=== PATIENT | male | born 1965 | race Caucasian/White ===

== ENCOUNTER 2017-05-16 08:47 | Emergency (ER) | payer BC ==
[2017-05-16] MEDS ORDERED: ASPIRIN 81 MG TAB.CHEW ONE (09:32)
[2017-05-16] MEDS ORDERED: METOPROLOL TARTRATE 25 MG TABLET ONE (09:32)
--- NOTE | 2017-05-16 09:32 | ERNOTE ---
Medical Problem HPI - Narrative Date of Service: 05/16/17 - General Chief Complaint: General Assessment Time Seen by Provider: 05/16/17 09:32 Source: patient - Immun/Allergies/Home Medications Immunizations: IMMUNIZATION HX Immunizations Up to Date Yes History of Influenza Vaccine No Hx Pneumococcal Vaccination No Allergies/Adverse Reactions: Allergies No Known Allergies Allergy (Verified 05/16/17 09:01) Home Medications: HOME MEDICATIONS Atorvastatin Calcium [Lipitor] 10 mg PO HS 05/30/14 [Last Taken Unknown] Lansoprazole [Prevacid] 30 mg PO DAILY 05/30/14 [Last Taken Unknown] Valsartan [Diovan] 80 mg PO DAILY #30 tablet 05/16/17 [Last Taken Unknown] - History of Present History Narrative: left shoulder pain Date (Duration): 05/14/17 Time (Timing): 08:00 Timing: getting worse Modifying Factors - (Improves): Present: cold therapy, medication - topical antihistamine with a menthol combination. Review of Systems - Narrative Narrative: Patient currently denies any active chest pain. Reports that he has pain in the posterior left shoulder along the rhomboids. He denies any acute injury he reports that this is more of an achy he usually doesn't require to take any significant pain medication. Patient reports that he had a wellness screening and his blood pressure was identified as elevated in the range of essential hypertension. After the health screening he has to front to take his blood pressure continued to be elevated and he is here for evaluation. Patient's current health's factors include hyperlipidemia male gender and elevated blood pressure now identified and confirmed with several elevated readings. - Review of Systems Constitutional: Present: no symptoms reported EYE: Present: no symptoms reported ENT: Present: no symptoms reported Respiratory: Present: no symptoms reported Cardiology: Present: no symptoms reported Gastrointestinal/Abdominal: Present: no symptoms reported Genitourinary: Present: no symptoms reported Musculoskeletal: Present: See HPI, muscle pain - posterior left shoulder, muscle stiffness. Absent: neck pain, joint pain, joint swelling Skin: Present: no symptoms reported Neurological: Present: no symptoms reported Endocrine: Present: no symptoms reported Hematologic/Lymphatic: Present: no symptoms reported Psych: Present: no symptoms reported All Other Systems: All systems neg except as marked - Narrative Narrative: Pertinent past medical history, past social history, past surgical history, medications, social history, and family history were all reviewed. - Patient's Past Medical History Patient History - Medical: No pertinent hx Patient History - Cardiac/Respiratory: No pertinent hx Patient History - Cancer: No Hx of Cancer Patient History - Surgical Procedures: Colonoscopy, T & A Patient History - Other: None - Family History Father Family History - Cardiac/Respiratory: CVA/Stroke, Hypertension - Social History Smoking Status: Never smoker Have you smoked in the past 12 months: No Do you dip or chew tobacco: No - Immunizations Immunizations Up to Date: Yes Hx Pneumococcal Vaccination: No History of Influenza Vaccine: No Physical Exam - Physical Exam Narrative: doing well at health screening BP elevated. General Appearance: Present: wd/wn, alert Eye Exam: Normal inspection: bilateral, PERRL: bilateral, EOMI: bilateral, Abnormal EOM: bilateral Ears, Nose, Throat: Present: normal ENT inspection, normal except - Neck: Present: normal inspection, nontender Respiratory: Present: no respiratory distress, normal breath sounds, no accessory muscle use, chest nontender, lungs clear Cardiovascular/Chest: Present: regular rate, rhythm, no murmur, normal peripheral pulses Peripheral Pulses: N=norm/S=strong/W=weak/B=bound/A=absent: Carotid (R): Normal , Carotid (L): Normal, Radial (R): Normal, Radial (L): Normal Gastrointestinal/Abdominal: Present: normal bowel sounds, nontender, nondistended, soft, no organomegaly Rectal Exam: Present: deferred Male Genitals Exam: Present: deferred Back Exam: Present: other - left rhomboid pain reproducible Extremity Exam: Present: normal inspection, joint redness Neurological Exam: Present: oriented, normal mood/affect, no motor/sensory deficits Skin Exam: Present: normal color, warm/dry Lymphatic Exam: Present: no adenopathy ED Progress - Date and Time Seen: Date and Time: 05/16/17 20:33 Patient's blood pressure was rechecked see the nursing record but his blood pressure was down to 165/75 which within an acceptable range. I discussed with patient the need for him to stay on some type of blood pressure medication he is amenable to this he has a full physical scheduled next week with Dr. Maricarmen Ramirez. Patient was currently stable for discharge the discharge medication will be Diovan 80 mg daily and follow-up with Dr. Maricarmen Ramirez - Results and Orders Patient's Lab Results:: I have reviewed the patient's lab results. Results and Orders: Laboratory Tests 05/16/17 05/16/17 05/16/17 09:46 09:46 09:46 WBC 4.8 RBC 4.98 Hgb 15.5 Hct 43.8 MCV 88.0 MCH 31.1 H MCHC 35.4 RDW 12.4 Plt Count 210 MPV 9.6 H Immature Gran % (Auto) 0.20 Immature Gran # (Auto) 0.01 Neutrophils % 51.5 Lymphocytes % 36.4 Monocytes % 7.6 Eosinophils % 2.9 Basophils % 1.4 H PT INR (Anticoag Therapy) PTT (Grand) Sodium 140 Plasma Sodium 140 Potassium 4.2 Chloride 102 Carbon Dioxide 29.5 Anion Gap 12.7 BUN 16 Creatinine 0.95 Est GFR (Non-Af Amer) 88 BUN/Creatinine Ratio 16.8 Random Glucose 94 Calcium 9.3 Calcium Adj for Albumin 8.6 Total Bilirubin 0.6 AST 27 ALT 47 Alkaline Phosphatase 73 Troponin I Less than 0.017 Total Protein 7.8 Albumin 4.5 05/16/17 09:46 WBC RBC Hgb Hct MCV MCH MCHC RDW Plt Count MPV Immature Gran % (Auto) Immature Gran # (Auto) Neutrophils % Lymphocytes % Monocytes % Eosinophils % Basophils % PT 10.2 INR (Anticoag Therapy) 0.98 PTT (Virgilio) 28.5 Sodium Plasma Sodium Potassium Chloride Carbon Dioxide Anion Gap BUN Creatinine Est GFR (Non-Af Amer) BUN/Creatinine Ratio Random Glucose Calcium Calcium Adj for Albumin Total Bilirubin AST ALT Alkaline Phosphatase Troponin I Total Protein Albumin - Vital Signs Patient's Vital Signs:: I have reviewed the patient's vital signs. Vital Signs: Vital Signs 05/16/17 08:55 Temperature 37.0 C Pulse Rate 64 Respiratory 14 Rate Blood Pressure 179/111 O2 Sat by Pulse 98 Oximetry - EKG EKG: NSR, nonspecific ST T wave changes, LVH, other - no ectopy EKG read: Reviewed by me EKG Comments: done at 0909am rate of 65 no acute stemi, lvh by criteria, non specific st t wave on lateral lead V5 - X-Ray X-Ray #1 X-Ray: chest Interpretation: Reviewed by me X-ray Comments: X-RAY REPORT [id number] RAD/Chest PA Lateral * Exam Date: 05/16/2017 10:10 Ordering Physician: Anny Cruz HISTORY: chest pain / left shoulder pain Additional history from technologist: High blood pressure, chest pain off and on since . TECHNIQUE: PA and lateral views of the chest were obtained. 3 images. COMPARISONS: None Available FINDINGS: Chest PA Lateral * Normal lung volumes. No consolidation or mass. Small calcified granulomas of the bilateral lung gutiérrez. No pneumothorax or pleural fluid collections. Cardiac and mediastinal silhouettes are normal. Trachea is in normal position. Bones show degenerative changes of the spine. IMPRESSION: 1. No focal acute cardiopulmonary finding. 2. Additional comments are as above. Electronically signed by Dakota Solorzano M.D.. Dakota Solorzano MD Dict: 05/16/17 1037 Typed: 05/16/17 1037/ - Progress/Reassessment Chief Complaint: General Assessment Progress:: Improved Plan - Plan Plan: Patient's repeat blood pressure 163/90 patient continues without symptoms. Patient counselled on blood pressure medications and need for follow up and monitoring as it causes heart and renal disease without many overt symptoms. Patient has an annual physical scheduled for next week already, Labs, chest xray , and ekg results shared with patient. Departure - Departure Clinical Impression: Hypertension Qualifiers: Hypertension type: essential hypertension Qualified Code(s): I10 - Essential ( primary) hypertension Disposition: Home self-care Condition: Good Instructions: Hypertension, [id number], Managing Your High Blood Pressure Referrals: Javier Butterfield MD [Primary Care Provider] - 05/21/17 Prescriptions: Valsartan [Diovan] 80 mg PO DAILY #30 tablet
[2017-05-16] MEDS: ASPIRIN 81 MG TAB.CHEW PO STA (09:34)
[2017-05-16] MEDS: METOPROLOL TARTRATE 25 MG TABLET PO SCH (09:34)
[2017-05-16 09:55] LABS: Hematocrit 43.8 % (42.0-52.0); Hemoglobin 15.5 gm/dL (13.5-18.0); Mean Corpuscular Hemoglobin 31.1 pg (27-31); Mean Corpuscular Hgb Conc 35.4 g/dl (32-36); Mean Platelet Volume 9.6 fl (6.0-9.5); Neutrophil # 2.5 K/mm3 (1.3-6.0); Neutrophil % 51.5 % (42-75.0); Platelet Count 210 K/mm3 (150-450); Red Blood Count 4.98 M/mm3 (4.7-6.0); Red Cell Distribution Width 12.4 % (11.5-14.0); White Blood Count 4.8 K/mm3 (4.0-10.5)
[2017-05-16 10:06] LABS: Prothrombin Time (Patient) 10.2 Seconds (9.4-11.4)
[2017-05-16 10:08] LABS: INR 0.98 INR (0.90-1.10); Partial Thrombolplastin Time 28.5 Seconds (24-32)
[2017-05-16 10:09] LABS: Albumin * 4.5 gm/dl (3.4-5.0); Anion Gap 12.7 mmol/L (6.8-13.8); BUN/Creatinine Ratio 16.8 (9.0-21.6); Bilirubin, Total 0.6 mg/dL (0.0-1.1); Ca. Corrected For Albumin 8.6 mg/dL (8.4-10.2); Calcium * 9.3 mg/dL (7.9-10.9); Carbon Dioxide 29.5 mmol/L (24-32.6); Potassium 4.2 mmol/L (3.4-4.6); Total Protein 7.8 gm/dL (6.2-8.2)
[2017-05-16 11:21] VITALS: BP 163/96
== END 2017-05-16 11:32 | disposition home or self-care (01) ==
LOC: ER 08:47
DX: I10 Essential (primary) hypertension (principal)